=== PATIENT | male | born 1950 | race Caucasian/White ===

== ENCOUNTER 2016-04-19 19:57 | Inpatient (IN) | payer BC ==
[~2016-04-19] VITALS: Ht 172.7 cm; Wt 80.0 kg
[~2016-04-19 19:57] MED LIST: AMOXICILLIN/CLA1 TA1 PO; ASPIRIN 81M81 MG/TA2 PO; ENBREL25 MG SC; NORCO 325 MG-51 TAB PO; PREDNISONE1 MG PO; PRINIVIL20 MG PO; TIAZAC120 MG PO; TYLENOL 325MG325 MG PO; ZANTAC 150MG T150 MG PO
[2016-04-19 22:31] LABS: BASO % 0.2 % (0.0-2.0); EOS % 0.1 % (0-4.0); GRAN # 7.9 (1.4-6.5); GRAN % 84.7 % (42.2-75.2); HEMATOCRIT 46.6 % (42.0-52.0); HEMOGLOBIN 16.9 g/dl (13.5-18.0); LYMPH # 0.8 (1.2-3.4); LYMPH % 8.3 % (20.0-51.0); MEAN CELL VOLUME 82 fl (80.0-100.0); MEAN CORPUSCULAR HEMOGLOBIN 30 pg (27.0-31.0); MEAN CORPUSCULAR HGB CONC 36 g/dl (33.0-37.0); MEAN PLATELET VOLUME 8.8 fl (7.4-10.4); MONO # 0.6 (0.1-0.6); MONO % 6.4 % (1.7-9.3); PLATELET COUNT 170 K/mm3 (130-400); REDCELL DISTRIBUTION WIDTH-CV 13.1 % (11.5-14.5); WHITE BLOOD COUNT 9.4 K/mm3 (4.8-10.8)
[2016-04-19 22:44] LABS: ALBUMIN 4.6 gm/dL (3.5-5.0); BILIRUBIN,TOTAL 1.1 mg/dL (0.0-1.0); C-REACTIVE PROTEIN 2.8 mg/dL (0.0-0.9); CALCIUM 9.5 mg/dL (8.4-10.2); CREATININE, serum 0.93 mg/dL (0.66-1.25); POTASSIUM 3.5 mmol/L (3.4-5.0); TOTAL PROTEIN 8.2 gm/dL (6.4-8.2)
[2016-04-19 22:58] LABS: INFLUENZA B NEGATIVE
[2016-04-19 23:37] LABS: PH 5 (5-8); SQUAMOUS EPITHELIAL None Seen /hpf; URINE APPEARANCE Clear; URINE BACTERIA None Seen /hpf; URINE BILIRUBIN Negative (NEGATIVE); URINE BLOOD 2+ (NEGATIVE); URINE COLOR Yellow; URINE GLUCOSE Negative (NEGATIVE); URINE KETONE Negative (NEGATIVE); URINE UROBILINOGEN Negative (NEGATIVE); URINE WBC 0-2 /hpf
[2016-04-19] MEDS ORDERED: ZOVIRAX800 MG PO (23:55)
[2016-04-20] VITALS (7 sets, daily range): BP systolic 121–140; BP diastolic 55–77; PULSE 64–79; TEMP 98.2–99
[2016-04-21 04:25] VITALS: BP 138/58; PULSE 66; TEMP 98.2
[2016-04-21 08:57] VITALS: BP 107/62; PULSE 71; TEMP 98
[2016-04-21 12:22] VITALS: BP 125/72; PULSE 80; TEMP 96.6
[2016-04-21 16:14] VITALS: BP 116/58; PULSE 65; TEMP 97.4
[2016-04-22 00:38] VITALS: BP 128/75; PULSE 60; TEMP 98
[2016-04-22 04:28] VITALS: BP 133/76; PULSE 65; TEMP 97.4
[2016-04-22 08:38] VITALS: BP 166/94; PULSE 70; TEMP 97
[2016-04-22] MEDS ORDERED: TAMIFLU 75MG75 MG PO (11:26)
[2016-04-22] MEDS ORDERED: ZOFRAN 4MG T4 MG/TAB PO (11:26)
[2016-04-22] MEDS ORDERED: NORCO 325 MG-51 TAB PO (11:26)
[2016-04-22 11:45] VITALS: BP 149/81; PULSE 58; TEMP 98
== END 2016-04-22 14:11 | disposition home or self-care (01) | DRG 153 ==
LOC: COL.ER 19:57 → MEDICAL 23:29
PROVIDERS: Family Medicine
DX: J11.1 Influenza due to unidentified influenza virus with other respiratory manifestations (principal); B02.0 Zoster encephalitis; L40.50 Arthropathic psoriasis, unspecified; E86.0 Dehydration; K02.9 Dental caries, unspecified
CPT/HCPCS: J1170; J2270; J2405; J7030